=== PATIENT | male | born 1970 | race Caucasian/White ===

== ENCOUNTER 2016-10-18 10:36 | Emergency (ER) | payer OTHER ==
[2016-10-18 11:06] VITALS: BP 147/92
[2016-10-18] MEDS ORDERED: Lidocaine 1% 20 ML MDV INJECT ONE (11:27)
[2016-10-18] MEDS ORDERED: Diphtheria,Pertussis(Acell),Tetanus Vaccine 0.5 ML SDV inactive IM ONE (11:27)
--- NOTE | 2016-10-18 11:32 | EDM.PDOC ---
ED HPI GENERAL MEDICAL PROBLEM - General Chief Complaint: Laceration Stated Complaint: LEFT THUMB INJURY Time Seen by Provider: 10/18/16 11:21 Source of Information: Reports: Patient History Limitations: Reports: No Limitations - History of Present Illness INITIAL COMMENTS - FREE TEXT/NARRATIVE: patient is a 46-year-old male who presents ED complaining of a laceration to the left thumb. Patient was grinding a chain and the sample grinder accidentally kicked back cutting his thumb. Bleeding was minimal. Pain is minimal. Tetanus status is not up-to-date. He denies any numbness or tingling or excessive pain with flexion extension of the thumb. he has no additional complaints Onset: Today, Sudden Duration: Constant Location: Reports: Upper Extremity, Left (thumb) Quality: Reports: Ache Severity: Mild Context: Reports: Trauma Treatments INJURY PREVENTION COORDINATOR: Reports: Other (see below) (paper towel to control bleeding) Left 1-Thumb Pain Score (Numeric/FACES): 2 - Related Data Allergies Allergy/AdvReac Type Severity Reaction Status Date / Time No Known Allergies Allergy Verified 10/18/16 11:01 Home Meds: Home Meds . [No Known Home Meds] 10/18/16 [History] Past Medical History - Past Health History Medical/Surgical History: Denies Medical/Surgical History - Past Surgical History GI Surgical History: Reports: Appendectomy, Hernia, Inguinal Social & Family History - Tobacco Use Smoking Status *Q: Never Smoker - Caffeine Use Caffeine Use: Reports: Coffee, Soda - Recreational Drug Use Recreational Drug Use: No ED ROS GENERAL - Review of Systems Review Of Systems: ROS reveals no pertinent complaints other than HPI. ED EXAM, SKIN/RASH Exam: See Below Exam Limited By: No Limitations General Appearance: Alert, WD/WN, No Apparent Distress Ears: Hearing Grossly Normal Nose: Normal Inspection Throat/Mouth: Normal Voice, No Airway Compromise Neck: Normal Inspection, Supple Respiratory/Chest: No Respiratory Distress, No Accessory Muscle Use Cardiovascular: Normal Peripheral Pulses, Regular Rate, Rhythm Peripheral Pulses: 2+: Radial (L) Extremities: Other (2 cm laceration to the left MCP joint of thumb. Wound was not deep. No sensory or motor deficits noted. ) Neurological: Alert, Oriented, CN II-XII Intact, Normal Cognition Psychiatric: Normal Affect, Normal Mood Skin: Warm, Dry, Normal Color, No Rash Location, Skin: Upper Extremity, Left ED SKIN PROCEDURES - Laceration/Wound Repair Left Finger Lac/wound length in cm: 2 Appearance: Subcutaneous Distal NVT: Neuro & Vascular Intact, No Tendon Injury Anesthetic Type: Local Local Anesthesia - Lidocaine (Xylocaine): 1% Plain Local Anesthetic Volume: 4cc Skin Prep: Saline, Sterile Drape Exploration/Debridement/Repair: Wound Explored, in a Bloodless Field, Explored to Base, No Foreign Material Found Suture Size: 4-0 # of Sutures: 3 Suture Type: Prolene, Interrupted, Simple Drain Placement: No Sterile Dressing Applied: Nurse Tetanus Status Addressed: Yes Complications: No Course - Vital Signs Last Recorded V/S: Last Vital Signs Temp 97.5 F 10/18/16 11:04 Pulse 56 L 10/18/16 11:04 Resp 18 10/18/16 11:04 BP 147/92 H 10/18/16 11:04 Pulse Ox 97 10/18/16 11:04 - Orders/Labs/Meds Orders: Active Orders 24 hr Category Date Time Status Vaccines to be Administered [RC] PER UNIT ROUTINE Care 10/18/16 11:27 Active Meds: Medications Discontinued Medications Generic Name Dose Route Start Last Admin Trade Name Freq PRN Reason Stop Dose Admin Diphtheria/Tetanus/Acell Pertussis 0.5 ml 10/18/16 11:27 Boostrix IM 10/18/16 11:28 .ONCE ONE Lidocaine HCl 20 ml 10/18/16 11:27 Xylocaine 1% INJECT 10/18/16 11:28 ONETIME ONE - Re-Assessments/Exams Free Text/Narrative Re-Assessment/Exam: 10/18/16 11:32 Ordered lidocaine 1% and boostrix update. Laceration closed with no complications. Discharged home with instructions as documented. Departure - Departure Time of Disposition: 12:02 Disposition: Home, Self-Care 01 Condition: good Clinical Impression: Laceration of thumb Qualifiers: Encounter type: initial encounter Damage to nail status: without damage Foreign body presence: without foreign body Laterality: left Qualified Code(s): S61.012A - Laceration without foreign body of left thumb without damage to nail , initial encounter - Discharge Information Instructions: Stitches, Garo, or Adhesive Wound Closure, [id number], Laceration Care, Adult, [id number] Referrals: PCP,None [Primary Care Provider] - Forms: ED Department Discharge Additional Instructions: see a provider at the [facility] in 7 days for suture removal. Cleanse site twice daily with soap and water, pat dry, reapply triple antibiotic and dressing. Take Tylenol and ibuprofen in alternating fashion for pain. Keep area clean and dry. Return to ED if you experience increased redness, increased swelling, or purulent drainages. - My Orders Last 24 Hours: My Active Orders 10/18/16 11:27 Vaccines to be Administered [RC] PER UNIT ROUTINE - Assessment/Plan Last 24 Hours: My Active Orders 10/18/16 11:27 Vaccines to be Administered [RC] PER UNIT ROUTINE
== END 2016-10-18 12:20 | disposition home or self-care (01) ==
LOC: JD.ED 10:36
DX: S61.012A Laceration without foreign body of left thumb without damage to nail, initial encounter (principal); Z23 Encounter for immunization; Z90.49 Acquired absence of other specified parts of digestive tract; Z98.890 Other specified postprocedural states; W29.8XXA Contact with other powered hand tools and household machinery, initial encounter; Y92.69 Other specified industrial and construction area as the place of occurrence of the external cause; Y99.0 Civilian activity done for income or pay
CPT/HCPCS: 12001; 90471; 90715; 99283-25